=== PATIENT | male | born 1985 | race Caucasian/White ===

== ENCOUNTER 2024-02-14 10:27 | Emergency (ER) | payer OTHER ==
[~2024-02-14] VITALS: Ht 162.6 cm; Wt 73.0 kg
[2024-02-14 10:32] VITALS: O2SAT 98
[2024-02-14 12:00] VITALS: BP 116/74; PULSE 68; RESP 16; TEMP 98.6
== END 2024-02-14 12:46 ==
LOC: ER 10:27
DX: S61.215A Laceration without foreign body of left ring finger without damage to nail, initial encounter (principal); S01.01XA Laceration without foreign body of scalp, initial encounter; S09.90XA Unspecified injury of head, initial encounter; F10.129 Alcohol abuse with intoxication, unspecified; I51.9 Heart disease, unspecified; R41.82 Altered mental status, unspecified; Y04.0XXA Assault by unarmed brawl or fight, initial encounter; Y93.89 Activity, other specified; Y92.89 Other specified places as the place of occurrence of the external cause; Y99.8 Other external cause status; Y90.9 Presence of alcohol in blood, level not specified
CPT/HCPCS: 70450; 12001; 99284; Z7610